=== PATIENT | female | born 1960 | race Two or more races ===

== ENCOUNTER 2018-11-07 21:17 | Emergency (ER) | payer MEDICAID ==
[~2018-11-07] VITALS: Ht 172.7 cm; Wt 85.6 kg
[~2018-11-07 21:17] MED LIST: NO HOME MEDS
[2018-11-07] MEDS ORDERED: HYDROcodone/acetaminophen 5mg/325mg tablet PO ONE (22:30)
[2018-11-07] MEDS ORDERED: NAPR-56 PO (22:38)
[2018-11-07 22:57] VITALS: BP 145/71
== END 2018-11-07 23:04 | disposition home or self-care (01) ==
LOC: ER 21:18
DX: M25.461 Effusion, right knee (principal); G89.29 Other chronic pain; Z88.8 Allergy status to other drugs, medicaments and biological substances; Z79.899 Other long term (current) drug therapy; W07.XXXA Fall from chair, initial encounter; Y93.89 Activity, other specified; Y92.89 Other specified places as the place of occurrence of the external cause; Y99.8 Other external cause status
CPT/HCPCS: 29505; 73564; 99284

== ENCOUNTER 2021-09-22 22:27 | Emergency (ER) | payer MEDICAID ==
[~2021-09-22] VITALS: Ht 149.9 cm; Wt 70.5 kg
[2021-09-22 23:15] LABS: URINE HCG NEGATIVE (NEG)
[2021-09-22 23:16] LABS: CLARITY,URINE CLOUDY (Clear); COLOR,URINE YELLOW (Yellow); GLUCOSE, URINE NEGATIVE (Neg); KETONES,URINE TRACE mg/dl (Neg); LEUKOCYTE ESTERASE ,URINE MODERATE (Neg); NITRITES, URINE NEGATIVE (Neg); OCCULT BLOOD,URINE MODERATE (Neg); PROTEIN,URINE NEGATIVE (Neg)
[2021-09-22 23:19] LABS: UA COLLECTION TYPE CLN CATCH MIDSTREAM
[2021-09-22 23:22] VITALS: BP 149/80
[2021-09-22 23:23] LABS: SQUAMOUS EPITHELIAL CELL,UR MODERATE /LPF (FEW)
[2021-09-22 23:24] LABS: MUCUS STRANDS FEW /LPF (Neg); WBC CLUMPS,URINE MODERATE /HPF (NEGATIVE)
[2021-09-22 23:26] LABS: RENAL CELLS, URINE FEW /HPF
[2021-09-22 23:27] LABS: BACTERIA,URINE 1+ /HPF (Neg)
[2021-09-22 23:28] LABS: TRICHOMONAS,URINE MOD /HPF (NEGATIVE); WBC,URINE 20-30 /HPF (0-4)
[2021-09-23] MEDS ORDERED: iohexol 300mg/ml 100ml inj. ONE (01:54)
[2021-09-23 02:15] LABS: BASOPHILS % (AUTO) 0.5 % (0-1); EOSINOPHILS # (AUTO) 0.2 X10'3 (0-0.9); EOSINOPHILS % (AUTO) 4.6 % (0-6); HEMATOCRIT 40.6 % (35.0-45.0); LYMPHOCYTES # (AUTO) 1.7 X10'3 (1.1-4.8); LYMPHOCYTES % (AUTO) 34.3 % (21-51); MEAN CORPUSCULAR HEMOGLOBIN 32.4 PG (27.0-31.0); MEAN CORPUSCULAR HGB CONC 34.5 g/dL (33.0-36.5); MEAN CORPUSCULAR VOLUME 93.8 FL (78-98); MEAN PLATELET VOLUME 8.1 FL (7.4-10.4); MONOCYTES # (AUTO) 0.4 X10'3 (0-0.9); MONOCYTES % (AUTO) 7.9 % (2-12); NEUTROPHILS # (AUTO) 2.6 X10'3 (1.8-7.7); NEUTROPHILS % (AUTO) 52.7 % (42-75); PLATELET COUNT 189 X10'3 (140-440); RED BLOOD COUNT 4.32 X10'6 (4.20-5.60); RED CELL DISTRIBUTION WIDTH 12.6 % (11.5-14.5)
[2021-09-23] MEDS ORDERED: DOXY-11 PO (02:34)
[2021-09-23] MEDS ORDERED: DOXYCYCLINE 100MG CAPSULE PO STA (02:34)
[2021-09-23] MEDS ORDERED: CefTRIAXone 500MG IM Kit w/LIDOcaine IM ONE (02:35)
[2021-09-23] MEDS ORDERED: CefTRIAXone 1000mg IM Kit (w/lidocaine diluent) IM ONE (02:40)
== END 2021-09-23 03:03 | disposition home or self-care (01) ==
LOC: ER 22:28
DX: N39.0 Urinary tract infection, site not specified (principal); R30.0 Dysuria; N89.8 Other specified noninflammatory disorders of vagina; G89.29 Other chronic pain; Z87.442 Personal history of urinary calculi; Z87.440 Personal history of urinary (tract) infections; Z88.8 Allergy status to other drugs, medicaments and biological substances; Z79.2 Long term (current) use of antibiotics
CPT/HCPCS: 36415; 81001; 81025; 85025; 87077; 87088; 87186; 96372; 99283; J0696; Q9967

== ENCOUNTER 2023-04-08 23:12 | Emergency (ER) | payer MEDICAID ==
[~2023-04-08] VITALS: Ht 149.9 cm; Wt 65.9 kg
[~2023-04-08 23:12] MED LIST changes: +BACL10TA2 PO; +CHOL500049 PO; +DICL100G59 TOP; +NICO-631 TD
[2023-04-08 23:13] VITALS: BP 151/95; PULSE 111; RESP 19; TEMP 98.2; O2SAT 97
== END 2023-04-09 03:37 | disposition left against medical advice (07) ==
LOC: ER 23:12
DX: R07.81 Pleurodynia (principal); Z53.21 Procedure and treatment not carried out due to patient leaving prior to being seen by health care provider
CPT/HCPCS: 71045; 99281